=== PATIENT | male | born 1960 | race Caucasian/White ===

== ENCOUNTER 2023-03-24 21:16 | Emergency (ER) | payer OTHER ==
[~2023-03-24] VITALS: Ht 170.2 cm; Wt 93.2 kg
[2023-03-24 21:27] VITALS: BP 131/90; PULSE 91; RESP 16; TEMP 96.5; O2SAT 96
== END 2023-03-25 00:19 | disposition home or self-care (01) ==
LOC: ER 21:18
DX: S92.591A Other fracture of right lesser toe(s), initial encounter for closed fracture (principal); X58.XXXA Exposure to other specified factors, initial encounter; Y93.9 Activity, unspecified; Y92.89 Other specified places as the place of occurrence of the external cause; Y99.8 Other external cause status
CPT/HCPCS: 29515; 73630; 99283; A6449